=== PATIENT | male | born 1945 | race Hispanic/Latino ===

== ENCOUNTER 2019-07-19 05:46 | Day surgery (SDC) | payer MEDICARE ==
[2019-07-19] MEDS ORDERED: NACL 0.9% 1000 ML 1,000 ML IV SCH (07:00)
[2019-07-19 07:13] LABS: Calcium 8.8 mg/dL (8.4-10.2)
[2019-07-19] MEDS ORDERED: HEPARIN/NS 5000 UNIT/500ML(CATH LAB) 1,000 ML IR ONE (08:22)
[2019-07-19] MEDS ORDERED: HEPARIN 10,000 UNITS/10 ML ONE (08:22)
[2019-07-19] MEDS ORDERED: CALAN ONE (08:23)
[2019-07-19] MEDS ORDERED: NITROGLYCERIN SYRINGE 0 ML ONE (08:23)
[2019-07-19] MEDS ORDERED: XYLOCAINE 2% INFILTRATI ONE (08:23)
[2019-07-19] MEDS ORDERED: VERSED ONE (08:24)
[2019-07-19] MEDS ORDERED: SUBLIMAZE ONE (08:24)
--- NOTE | 2019-07-19 10:02 | Cardiac Catherization Report ---
REFERRING PHYSICIAN: Dr. Dannie Nesbitt INDICATION FOR PROCEDURE: The patient is a very pleasant 73-year-old gentleman with a history of coronary bypass surgery, found to have severe aortic stenosis, now having symptoms of fatigue, and significant shortness of breath. Other known medical disease is chronic kidney disease, diabetes, hypertension, and hyperlipidemia. He is prehydrated. His creatinine is 1.9. Obviously, we reduced contrast exposure as much as reasonably possible. PROCEDURE IN DETAIL: The patient was brought to catheterization lab in a postabsorptive state, prepped and draped in sterile fashion. An 8 mL of 2% lidocaine used to anesthetize the right wrist. A standard 5-Bulgarian hydrophilic sheath used to cannulate the right common femoral artery via modified Seldinger technique. All exchanges performed to exchange a J-tip guidewire. JL3.5 catheter used to engage the left main. No dampening or ventricularization. Cineangiography performed in all projections. It should be noted that we used Visipaque to further reduce risk of contrast-induced nephropathy. JR4 catheter was used to cross the aortic valve under fluoroscopic guidance. Left ventriculography performed in 30 BRAR projections via hand injections, catheter flushed. Manual pullback performed with continuous pressure monitoring. Catheter used to engage the right coronary. No dampening or ventricularization. Cineangiography performed in all projections. Catheter used to engage the right coronary and SVG. Cineangiography performed in all projections. Catheter used to engage the left subclavian difficulty engaging the left DOUGLAS. Selective third order left subclavian angiography performed. Next, we exchanged over a long wire for an IM catheter, engaged the DOUGLAS. Cineangiography performed in all projections. I directly supervised the administration of moderate sedation from 8:50 a.m. to 9:25 a.m. with fentanyl and Versed. DATA: The patient remained in normal sinus rhythm throughout the procedure. Left ventricle revealed normal systolic performance with estimated ejection fraction of 55-60%. Aortic pressure is 230 with an EDP of approximately 35 mmHg. LV pressure is 140/60. CORONARY ANATOMY: Right coronary is a moderate to large vessel, courses AV groove, distally bifurcates posterior and posterolateral branch, a chronically occluded PDA is noted. Moderate nonobstructive disease noted in the body of the right coronary. Left main is without significant disease, heavily calcified proximal LAD. LAD is occluded in the mid segment. Left circumflex with moderate nonobstructive disease. The DOUGLAS to LAD is widely patent. SVG jumps from right PDA to right posterolateral is widely patent. Left subclavian without significant disease or gradient. I minimized contrast used to approximately 30 mL total. Manual pressure used to achieve hemostasis. The right groin is stable. CONCLUSIONS: 1. Severe elim ira coronary artery disease as aforementioned: A. 100% chronic total occlusion of LAD with patent DOUGLAS to LAD. B. Occluded distal right coronary with patent SVG to PDA, which jumps to posterolateral branch. 2. Moderate nonobstructive disease in the circumflex system. 3. Patent left main. 4. Severe aortic stenosis, suak-bh-yqwl gradient of approximately 90 mmHg with mean gradient of approximately 60-65 mmHg. 5. Normal left ventricular function, estimated ejection fraction of 60-65%. I discussed with Dr. Dannie Nesbitt, his primary operating system designer. I believe the patient has severe symptomatic aortic stenosis. The patient will be transferred to [facility] for consideration of TAVR, chronic kidney disease is noted. We will watch him closely for contrast-induced nephropathy. Although I only used approximately 30 mL of Visipaque and he was prehydrated, be transferred today in stable condition. Follow up with Dr. Dannie Nesbitt in the office. JOB# [id number] SBM/NTS
[2019-07-19 12:31] VITALS: BP 141/72
--- NOTE | 2019-07-19 13:00 | Short Stay Summary ---
Short Stay Documentation Date of service: 07/19/19 - History H&P: obtained from office - Allergies and Medications Current Medications: Allergies latex Allergy (Verified 09/17/16 16:51) Hives Home Medications Medication Instructions Recorded Confirmed Last Taken Type Clopidogrel Bisulfate [Clopidogrel] 75 mg PO QDAY 09/17/16 07/19/19 07/19/19 05:00 History Aspirin [Adult Aspirin] 81 mg PO DAILY 07/19/19 07/19/19 07/19/19 05:00 History Benazepril HCl [Lotensin] 20 mg PO DAILY 07/19/19 07/19/19 07/19/19 History Furosemide [Lasix] 20 mg PO QDAY 07/19/19 07/19/19 07/19/19 History Gabapentin [Neurontin] 300 mg PO QPM 07/19/19 07/19/19 07/18/19 History Gabapentin [Neurontin] 600 mg PO QAM 07/19/19 07/19/19 07/19/19 History ISOSORBIDE MONOnitrate [Imdur ER] 30 mg PO DAILY 07/19/19 07/19/19 07/19/19 05:00 History Insulin Aspart [Novolog] 15 - 20 unit SQ TIDAC 07/19/19 07/19/19 07/18/19 History Insulin Glargine,Hum.rec.anlog 35 unit SQ BID 07/19/19 07/19/19 07/18/19 History [Basaglar Kwikpen U-100] Lisinopril [Zestril TAB] 10 mg PO QDAY 07/19/19 07/19/19 07/19/19 05:00 History Metoprolol [Lopressor] 25 mg PO BID 07/19/19 07/19/19 07/19/19 05:00 History Pravastatin [Pravachol] 40 mg PO QHS 07/19/19 07/19/19 07/18/19 History Rabeprazole Sodium [Aciphex] 20 mg PO DAILY 07/19/19 07/19/19 07/19/19 History Rosuvastatin Calcium [Crestor] 10 mg PO DAILY 07/19/19 07/19/19 07/18/19 History Terazosin HCl 2 mg PO BID 07/19/19 07/19/19 07/18/19 History Topiramate [Topamax] 25 mg PO DAILY 07/19/19 07/19/19 07/19/19 History amLODIPine [Norvasc] 10 mg PO DAILY 07/19/19 07/19/19 07/19/19 History hydrALAZINE [Apresoline] 25 mg PO Q8HR 07/19/19 07/19/19 07/19/19 05:00 History hydroCHLOROthiazide 12.5 mg PO DAILY 07/19/19 07/19/19 07/19/19 History [Hydrochlorothiazide] raNITIdine HCl [Zantac] 150 mg PO DAILY 07/19/19 07/19/19 Unknown History traMADol [Ultram] 50 mg PO Q4HR PRN 07/19/19 07/19/19 3 Days Ago History ~07/16/19 - Brief post op/procedure progress note Date of procedure: 07/19/19 Pre-op diagnosis: CAD; Post-op diagnosis: same Procedure: LHC - see dictated cath report Anesthesia: local Estimated blood loss: none Condition: stable - Hospital course Hospital course: pt tx to [facility] for consideration of TAVR - Disposition Condition at discharge: Good Disposition: [id number] ANOTHER TYPE [facility]THCARE - Discharge Diagnoses (1) CAD (coronary artery disease) Status: Chronic (2) Hx of CABG Status: Chronic (3) Severe aortic stenosis Status: Chronic (4) CKD (chronic kidney disease) Status: Chronic Short Stay Discharge Plan Wound: open to air, keep clean and dry, per your surgeon's advice Follow up with: PRAVIN SHAH MD [Primary Care Provider] - 7 Days DAVID LAGUNAS MD [Staff Physician] - 7 Days
== END 2019-07-19 12:50 | disposition other institution (70) ==
LOC: CATHLABREC 05:46
PROVIDERS: ATTEND Internal Medicine
DX: I25.10 Atherosclerotic heart disease of native coronary artery without angina pectoris (principal); I35.0 Nonrheumatic aortic (valve) stenosis; I12.9 Hypertensive chronic kidney disease with stage 1 through stage 4 chronic kidney disease, or unspecified chronic kidney disease; E11.22 Type 2 diabetes mellitus with diabetic chronic kidney disease; N18.9 Chronic kidney disease, unspecified; E78.00 Pure hypercholesterolemia, unspecified; M19.90 Unspecified osteoarthritis, unspecified site; K21.9 Gastro-esophageal reflux disease without esophagitis; M10.9 Gout, unspecified; Z95.1 Presence of aortocoronary bypass graft; Z79.899 Other long term (current) drug therapy; Z91.040 Latex allergy status; Z87.891 Personal history of nicotine dependence; Z79.82 Long term (current) use of aspirin; Z79.84 Long term (current) use of oral hypoglycemic drugs; Z72.89 Other problems related to lifestyle; Z98.890 Other specified postprocedural states; Z79.4 Long term (current) use of insulin; Z98.49 Cataract extraction status, unspecified eye; Z86.2 Personal history of diseases of the blood and blood-forming organs and certain disorders involving the immune mechanism
CPT/HCPCS: 36415; 80048; 93005; 93010; 93458; 96360; 96361; 99156; 99157; C1769; J1644; J2250; J3010; J7030; 93459; Q9967